=== PATIENT | female | born 1955 | race Caucasian/White ===

== ENCOUNTER 2018-06-13 23:28 | Emergency (ER) | payer OTHER, SELFPAY ==
[2018-06-13 23:32] VITALS: BP 113/95; PULSE 77; RESP 18; TEMP 36.9; O2SAT 94; BMI 32.9
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
--- NOTE | 2018-06-14 00:02 | ED.DEP ---
ED Disposition - Plan for ED Patient: Disposition: Home or Assisted Living Chief Complaint: Eye Problem Instructions: ED Tear Retinal Referrals: Kam De Jesus MD [STAFF PHYSICIAN] - As soon as possible
[2018-06-14 00:10] VITALS: BP 122/78; PULSE 80; RESP 14; O2SAT 99
== END 2018-06-14 00:11 | disposition home or self-care (01) ==
PROVIDERS: Emergency Provider Emergency Medicine; Family Provider Internal Medicine; PCP Internal Medicine
DX: H53.8 Other visual disturbances (principal); R25.3 Fasciculation
CPT/HCPCS: 99282

== ENCOUNTER 2019-01-11 17:31 | Emergency (ER) | payer OTHER, SELFPAY ==
[2019-01-11 17:32] VITALS: BP 155/89; PULSE 80; RESP 19; TEMP 36.5; O2SAT 98; BMI 33.9
--- NOTE | 2019-01-11 17:53 | ED.DCSUM_ITS ---
- ER Visit Summary Date of Service: 01/11/19 Chief Complaint: Rash History of Present Illness: The patient is a 63 F who presents with a rash that has been getting worse over the past week. Patient states the rash is pruritic and burning. Patient states the rashes under both breasts, chest, and back. Patient denies any rashes over the hands or extremities. Patient denies any new soaps, shampoos, laundry detergents, fabric softeners, or foods. Patient states the only thing different was her mother moved in with her recently. Patient denies any difficulty breathing or difficulty swallowing. Physical Examination: Vital signs are stable. Patient is afebrile. Patient is in no acute distress. Oral mucosa is pink and moist. There are no mucosal lesions noted. Skin is warm and dry. There is patchy mildly erythematous rash under the breasts bilaterally, over the anterior chest near the midline, and over the back. There are no vesicles or pustules noted. There are no petechia noted. There is no discharge or drainage. There is no crusting noted. Heart was regular rate and rhythm. Lungs are clear and equal bilateral. Abdomen is soft and nontender. Cranial nerves II through XII are intact. There are no focal motor or sensory deficits noted. The remaining physical exam is within normal limits. Emergency Department Course and Treatment: Patient was given a prescription for Lotrisone cream. Patient was instructed to continue her antihistamines as needed for any itching. Patient was instructed to follow-up with her primary care physician in 5-7 days. Patient understood and was agreeable with the plan. All questions were answered. Disposition: Discharge home Impression: Dermatitis This note was generated with [employer] dictation software. It may contain incorrect words, spelling, and punctuation that were not noted in review of the chart prior to signing ED Disposition - Plan for ED Patient: Disposition: Home or Assisted Living Diagnosis: Dermatitis Instructions: ED Candidiasis Cutaneous Prescriptions: Clotrimazole/Betamethasone Dip [Lotrisone Cream] 1 gm TP BID #45 cream..g. Referrals: Andrea Moore MD [Primary Care Provider] -
[2019-01-11 18:03] VITALS: RESP 18
== END 2019-01-11 18:22 | disposition home or self-care (01) ==
PROVIDERS: Emergency Provider Emergency Medicine; Family Provider Internal Medicine; PCP Internal Medicine
DX: L30.9 Dermatitis, unspecified (principal)
CPT/HCPCS: 99282

== ENCOUNTER 2019-12-23 14:44 | Emergency (ER) | payer OTHER, SELFPAY ==
[2019-12-23 14:44] VITALS: BP 137/81; PULSE 59; RESP 14; TEMP 36.6; O2SAT 97; BMI 32.9
--- NOTE | 2019-12-23 15:22 | ED.VISSUMM ---
- ER Visit Summary Date of Service: 12/23/19 Chief Complaint: [Dizziness] History of Present Illness: The patient is a 64 F [presents with dizziness that started about 2 hours ago. Patient states that she was walking in her room when she had sudden onset of feeling like her eyes were bouncing back and forth and room was spinning. Patient denies any recent falls or head injuries. She denies recent illness. Patient states she ate some Swedish food last night that did not quite taste right. Patient has vomited 3 times related to the dizziness. Dizziness is made worse with turning the head. She denies headache. She thinks she is had similar symptoms many years ago. Complains of some gurgling in her stomach. She is had no diarrhea. She denies any fevers. She does complain of some urinary frequency. She denies dysuria or hematuria. Patient has no medical history.] Physical Examination: [HEENT-PERRLA, EOMI. Cranial nerves II through XII grossly intact. TMs clear. Mucous membranes moist. No adenopathy. Cardiovascular-regular rate and rhythm without murmur or ectopy Lungs-clear to auscultation, chest wall stable without crepitus or subcu emphysema Abdomen-normoactive bowel sounds, soft, nontender, no rebound or rigidity, no peritoneal signs. Neuro aqvw-kksuqs-gm-nose and heel wagner testing within normal limits, negative Romberg, negative pronator, fundi benign. Hallpike maneuver performed did not elicit any nystagmus or complaint of dizziness. Extremities-intact ?4, normal range of motion, normal pulses, atraumatic] Test Results: [CBC with it was normal. Chemistries were normal. Urinalysis normal.] Emergency Department Course and Treatment: [Patient was medicated with Zofran IV as well as Antivert 25 mg p.o. Patient symptoms improve dramatically she was able to ambulate throughout the department without difficulty.] Treatment Plan: [Patient will be treated with Antivert and Zofran for home. Patient will follow-up with a primary care physician in 3 to 5 days. Patient advised to return if headache, difficulty with balance or speech, focal weakness, or conditions worsen anyway.] Disposition: [Discharged home in stable condition] Impression: [Benign positional vertigo] This note was generated with [employer] software. It may contain incorrect words, spelling, and punctuation that were not noted in review of the chart prior to signing ED Disposition - Plan for ED Patient: Referrals: Andrea Moore MD [Primary Care Provider] -
[2019-12-23] MEDS: 0.9% Normal Saline 1,000 ML 1000 ML IV (15:37)
[2019-12-23] MEDS: Meclizine HCl 25 MG Tablet PO (15:39)
[2019-12-23] MEDS: Ondansetron 4 MG/2 ML Vial IV (15:39)
[2019-12-23 15:43] LABS: Mucous, Urine 0 SEEN /hpf (<or=2+); Red Blood Cells-Urine 0 SEEN /hpf (0-5)
[2019-12-23 15:46] LABS: Glucose, Dipstick Normal (Normal); Ketone-Dipstick Negative (Negative); Leukocyte Esterase-Dipstick 25 /ul (Negative); Nitrite-Dipstick Negative (Negative); Occult Blood-Urine Negative /ul (Negative); Protein-Dipstick Negative (Negative); Urine Bilirubin Dipstick Negative (Negative); Urine Urobilinogen Normal (Normal)
[2019-12-23 15:48] LABS: Absolute Lymphocyte Count 2.29 X10^3/uL (0.83-4.51); Absolute Neutrophil Count 4.3 X10^3/uL (2.0-7.7); Basophil# 0.03 X10^3/uL; Basophil% 0.4 % (0-1); Eosinophils% 2.7 % (0-5); Hematocrit 43.9 % (37-47); Hemoglobin 14.4 g/dL (12.0-15.0); Lymphocyte # 2.29 X10^3/ul (4.0); Lymphocyte % 31.5 % (19-41); Mean Corp Hgb Conc 32.8 g/dL (32-36); Mean Corpuscular Hgb 31.2 pg (27.0-32.0); Mean Corpuscular Volume 95.2 fL (81-99); Mean Platelet Vol. 9.2 fl (6.2-12.0); Monocyte# 0.45 X10^3/uL; Monocyte% 6.2 % (0-10); NRBC Flagged by Analyzer 0 % (0-5); Neutrophil # 4.29 X10^3/uL (2.7-7.7); Neutrophil % 58.9 % (47-70); Platelet Count 284 K/mm3 (150-450); RBC Distribution Width CV 12.9 % (11.6-14.6); RBC Distribution Width SD 45.1 fl (35.1-43.9); Red Blood Count 4.61 M/mm3 (4.2-5.4); White Blood Count 7.3 K/mm3 (4.4-11.0)
[2019-12-23 15:49] LABS: Color, Urine Yellow (Yellow); Urine Clarity Cloudy (Clear)
[2019-12-23 16:07] LABS: Anion Gap 2 (5-15); BUN 11 mg/dL (7-18); BUN/Creat Ratio 12.6 RATIO (10-20); Calcium,Total 9.8 mg/dL (8.5-10.1); Chloride 107 mmol/L (98-107); Creatinine, Serum 0.87 mg/dL (0.55-1.02); EST Glomerular Filtration Rate 70 mL/min (>60); Est Glom Filt Rate - Afr Amer 84 mL/min (>60); Estimated Creatinine Clearance 53.03 ml/min; Glucose 94 mg/dL (74-106); Sodium Level 140 mmol/L (136-145)
[2019-12-23 16:16] LABS: Amorphous Sediment 4+; Bacteria 4+ /hpf (None Seen); Squamous Epithelial Cells - UA 5-10 SEEN /hpf (5-10); White Blood Cells 0-5 SEEN /hpf (0-5)
--- NOTE | 2019-12-23 16:53 | ED.DEP ---
ED Disposition - Plan for ED Patient: Instructions: Benign Positional Vertigo Prescriptions: Meclizine HCl [Antivert] 25 mg PO 4X/DAY PRN PRN #20 tab PRN Reason: Dizziness Prescription Printed Ondansetron [Zofran Odt] 4 mg PO Q8H PRN PRN #10 tab PRN Reason: Nausea Prescription Printed Referrals: Andrea Moore MD [Primary Care Provider] - 3-5 Days
[2019-12-23 17:08] VITALS: BP 132/81; PULSE 54; RESP 16; O2SAT 96
--- NOTE | 2019-12-23 17:09 | ED.RN ---
IV DC'ED, CATHETER INTACT, SMALL GAUZE DRESSING PLACED. DISCHARGE INSTRUCTIONS GIVEN TO AND REVIEWED WITH PATIENT, PATIENT DENIES QUESTIONS OR CONCERNS AND VOICES UNDERSTANDING OF DISCHARGE INSTRUCTIONS. PT AMBULATES OUT OF ROOM WITHOUT DIFFICULTY.
== END 2019-12-23 17:10 | disposition home or self-care (01) ==
PROVIDERS: Emergency Provider Emergency Medicine; PCP Internal Medicine
DX: H81.10 Benign paroxysmal vertigo, unspecified ear (principal); Z79.899 Other long term (current) drug therapy
CPT/HCPCS: 80048; 81001; 85025; 96361; 96374; 99284; J7030; A4216; J2405

== ENCOUNTER 2021-02-27 08:59 | Emergency (ER) | payer OTHER, SELFPAY ==
[2021-02-27 09:01] VITALS: BP 112/74; PULSE 88; RESP 16; TEMP 36.2; O2SAT 94; BMI 37.9
--- NOTE | 2021-02-27 09:18 | ED.VIS.GEN ---
History of Present Illness Chief Complaint: General Illness Narrative: Presents with 2-week history of generalized myalgias, some nausea which is now resolved and generalized weakness. She does have a change in taste. She has no known fever. No chills. No cough congestion. No shortness of breath. She feels gurgly feeling in her stomach but no abdominal pain. No lower extremity edema. Past medical history: None Medications: Vitamins Social history: Noncontributory Review of systems: All systems negative except as indicated General: Denies: Fever. Generalized weakness Eyes: Denies: Visual changes - bilaterally ENT: Denies: Rhinorrhea, Sore throat Cardiovascular: Denies: Chest pain Respiratory: Denies: Dyspnea, Cough Gastrointestinal: Denies: Abdominal pain, no vomiting. Some intermittent nausea which is now resolved Genitourinary: Denies: Dysuria Musculoskeletal: Generalized myalgias Skin: Denies: Rash Neurological: Denies: Headache, no focal weakness Psych: Reports: negative Hematologic: Denies: Easy bruising, Easy bleeding Physical exam General: Well nourished, Well developed, relatively comfortable in bed. I saw her walking from triage she appears well and ambulating with no difficulty. Head: Normocephalic, Atraumatic Eyes: Conjunctiva not pale ENT: Slightly dry mucous membranes Neck: Supple, Nontender, No lymphadenopathy Cardiovascular: Regular rate, Regular rhythm Respiratory: No distress, CTA bilaterally Abdomen: Soft, Nontender, Nondistended. No pain in the epigastrium right upper quadrant right lower quadrant or left side. No guarding or rebound Back: Nontender, Normal Inspection. Negative for: CVA tenderness Extremities: Nontender, No edema Skin: Normal color, No rash Neurological: Alert, Normal Strength, Normal Sensation Psychological: Normal affect Past Medical History - Allergies and Home Meds Allergies/Adverse Reactions: Allergies codeine Allergy (Verified 02/27/21 09:01) Other Primary Care Physician: Andrea Moore MD [Primary Care Provider] - Smoking Status: Never smoker - Family History Maternal Family History: Reports: Heart Disease Physical Exam Vital Signs/Narrative: Vital Signs Temp Pulse Resp BP Pulse Ox 02/27/21 09:01 97.1 F L 88 16 112/74 94 Diagnostic/Tx/Re-eval - Medical Decision Making Patient is found to have COVID-19 which makes sense with her symptoms she is oxygenating well she appears well and otherwise has a normal work-up. I believe she is stable for discharge. She does not meet criteria for monoclonal antibodies since this is been greater than 10 days. ED Disposition - Plan for ED Patient: Diagnosis: COVID-19 Instructions: Coronavirus Disease 2019 (COVID-19): Overview Referrals: Andrea Moore MD [Primary Care Provider] - 2 Days
[2021-02-27] MEDS: 0.9% Normal Saline 1,000 ML 1000 ML IV (09:39)
[2021-02-27 09:47] LABS: Absolute Lymphocyte Count 1.28 X10^3/uL (0.83-4.51); Absolute Neutrophil Count 2.8 X10^3/uL (2.0-7.7); Basophil# 0.02 X10^3/uL; Basophil% 0.5 % (0-1); Hemoglobin 15.1 g/dL (12.0-15.0); Lymphocyte # 1.28 X10^3/ul (4.0); Lymphocyte % 29.2 % (19-41); Mean Corp Hgb Conc 32.8 g/dL (32-36); Mean Corpuscular Hgb 31.5 pg (27.0-32.0); Mean Corpuscular Volume 95.8 fL (81-99); Mean Platelet Vol. 9.4 fl (6.2-12.0); Monocyte# 0.26 X10^3/uL; Monocyte% 5.9 % (0-10); NRBC Flagged by Analyzer 0 % (0-5); Neutrophil # 2.82 X10^3/uL (2.7-7.7); Neutrophil % 64.2 % (47-70); Platelet Count 198 K/mm3 (150-450); RBC Distribution Width CV 13.1 % (11.6-14.6); RBC Distribution Width SD 46.9 fl (35.1-43.9); White Blood Count 4.4 K/mm3 (4.4-11.0)
[2021-02-27 10:03] LABS: ALB/GLOB Ratio 0.7 RATIO (0.9-2.4); AST(SGOT) 50 U/L (15-37); Alanine Aminotransfer ALT/SGPT 72 U/L (13-56); Albumin, Serum 3.2 g/dL (3.2-5.0); Alkaline Phosphatase 153 U/L (45-117); Anion Gap 3 (5-15); BUN 9 mg/dL (7-18); BUN/Creat Ratio 10.6 RATIO (10-20); Calcium,Total 8.6 mg/dL (8.5-10.1); Chloride 102 mmol/L (98-107); Creatinine, Serum 0.85 mg/dL (0.55-1.02); EST Glomerular Filtration Rate 71 mL/min (>60); Est Glom Filt Rate - Afr Amer 86 mL/min (>60); Estimated Creatinine Clearance 55.31 ml/min; Globulin 4.6 g/dL (2.2-4.2); Glucose 96 mg/dL (74-106); Potassium 3.5 mmol/L (3.5-5.1); Protein, Total 7.8 g/dL (6.4-8.2); Sodium Level 136 mmol/L (136-145)
[2021-02-27 10:36] VITALS: BP 119/80; PULSE 74; RESP 16; O2SAT 100
[2021-02-27 11:49] VITALS: BP 119/80; PULSE 74; RESP 16; O2SAT 100
== END 2021-02-27 12:00 | disposition home or self-care (01) ==
PROVIDERS: Emergency Provider Emergency Medicine; PCP Internal Medicine
DX: U07.1 COVID-19 (principal); M79.10 Myalgia, unspecified site; R11.0 Nausea; R53.1 Weakness; Z79.899 Other long term (current) drug therapy
CPT/HCPCS: 80053; 85025; 87426; 96360; 96361; 99283; J7030; A4216